=== PATIENT | male | born 1965 | race Caucasian/White ===

== ENCOUNTER 2018-06-03 11:55 | Day surgery (SDC) | payer BC ==
[~2018-06-03] VITALS: Ht 177.8 cm; Wt 119.0 kg
[~2018-06-03 11:55] MED LIST: BUPIVACAINE/PF-EPI 0.5% 1:200K ONE; LIDOCAINE 1%-EPI 1:100K, 30ML ONE; ROPIvacaine/PF 0.5%, 30 ML ONE
[2018-06-03] MEDS ORDERED: LACTATED RINGERS 1,000 ML IV SCH (12:13)
[2018-06-03 12:15] VITALS: BP 142/92
[2018-06-03] MEDS ORDERED: PLEASE ENTER ALLERGIES MC SCH (12:30)
[2018-06-03] MEDS ORDERED: ONDANSETRON ODT 8 MG PO ONE (12:30)
[2018-06-03] MEDS ORDERED: GABAPENTIN 300 MG CAPSULE PO ONE (12:30)
[2018-06-03] MEDS ORDERED: PLEASE ENTER HEIGHT AND WEIGHT MC SCH (12:30)
[2018-06-03] MEDS ORDERED: ACETAMINOPHEN 500 MG TABLET PO ONE (12:30)
[2018-06-03] MEDS ORDERED: OxyconTIN ER 20 MG TAB.ER PO ONE (12:30)
[2018-06-03] MEDS ORDERED: FENTANYL PF 100 MCG/2ML ONE ×2 (12:37→14:39)
[2018-06-03] MEDS ORDERED: MIDAZOLAM 1 MG/ML, 2ML ONE (12:37)
[2018-06-03] MEDS ORDERED: ANAS1TAB PO (12:52)
[2018-06-03] MEDS ORDERED: TESTOSTERONE INJ (12:52)
[2018-06-03] MEDS ORDERED: [UNRECOGNIZED DRUG - OTHER] SL (12:52)
[2018-06-03] MEDS ORDERED: SUCCINYLCHOLINE 20 MG/ML, 10ML ONE (13:10)
[2018-06-03] MEDS ORDERED: ALBUTEROL/IPRATROPIUM 2.5MG/0.5MG, 3 ML NPPB PRN (14:00)
[2018-06-03] MEDS ORDERED: MIDAZOLAM 1 MG/ML, 2ML IV PRN (14:00)
[2018-06-03] MEDS ORDERED: PROMETHAZINE 12.5 MG SUPP PR PRN (14:00)
[2018-06-03] MEDS ORDERED: MEPERIDINE/PF 25MG/0.5ML IVPush PRN (14:00)
[2018-06-03] MEDS ORDERED: HYDROmorphone 1 MG/ML, 1ML IV PRN (14:00)
[2018-06-03] MEDS ORDERED: SCOPOLAMINE PATCH, 1.5MG PATCH.TD72 TD PRN (14:00)
[2018-06-03] MEDS ORDERED: OXYcodone 5 MG/5 ML ORAL.SOL UDC PO PRN (14:00)
[2018-06-03] MEDS ORDERED: FENTANYL PF 100 MCG/2ML IV PRN (14:00)
[2018-06-03] MEDS ORDERED: ONDANSETRON ODT 8 MG PO PRN (14:00)
[2018-06-03] MEDS ORDERED: LABETALOL 5MG/ML, 20ML IV PRN (14:00)
[2018-06-03] MEDS ORDERED: BUPIVACAINE/PF 0.5% ONE (14:01)
[2018-06-03] MEDS ORDERED: LIDOCAINE-MPF 2% ,5ML ONE (14:01)
[2018-06-03] MEDS ORDERED: DEXAMETHASONE 4 MG/ML, 1ML ONE (14:02)
[2018-06-03] MEDS ORDERED: PROPOFOL 10 MG/ML, 20ML ONE (14:02)
[2018-06-03] MEDS ORDERED: CEFAZOLIN 1,000 MG ONE (14:02)
== END 2018-06-03 18:00 | disposition home or self-care (01) ==
LOC: OUT 11:55
PROVIDERS: ATTEND Orthopaedic Surgery
DX: S43.431A Superior glenoid labrum lesion of right shoulder, initial encounter (principal); M75.111 Incomplete rotator cuff tear or rupture of right shoulder, not specified as traumatic; M75.41 Impingement syndrome of right shoulder; M19.011 Primary osteoarthritis, right shoulder; M65.811 Other synovitis and tenosynovitis, right shoulder; K21.9 Gastro-esophageal reflux disease without esophagitis; E03.9 Hypothyroidism, unspecified; X58.XXXA Exposure to other specified factors, initial encounter; Y93.89 Activity, other specified; Y92.89 Other specified places as the place of occurrence of the external cause; Y99.8 Other external cause status; Z72.89 Other problems related to lifestyle; Z87.39 Personal history of other diseases of the musculoskeletal system and connective tissue
CPT/HCPCS: 29823; 29824; 29826; 29827; 29828; 64415; C1713; J0330; J0690; J1100; J2250; J2704; J2795; J3010; J3490; J7120; Q0162